=== PATIENT | female | born 1960 | race African-American/Black ===

== ENCOUNTER 2024-10-14 20:22 | Inpatient (IN) | payer MEDICARE, OTHER ==
[~2024-10-14] VITALS: Ht 160 cm; Wt 81.6 kg
[2024-10-14 21:30] LABS: APPEARANCE,URINE CLEAR (CLEAR); BLOOD, URINE NEGATIVE Ery/uL (NEGATIVE); LEUKOCYTE ESTERASE ,URINE NEGATIVE (NEGATIVE); NITRITE, URINE NEGATIVE (NEGATIVE); UGLUCOSE NEGATIVE (NEGATIVE)
[2024-10-14 21:36] LABS: PLATELET COUNT (AUTO) 201 K/uL (150-450); RED BLOOD CELL COUNT(AUTO) 4.66 MIL/uL (4.0-5.2); RED CELL DISTRIBUTION WIDTH 15.1 % (11.5-15.0); WHITE BLOOD COUNT (AUTO) 5.6 K/uL (4.3-11.0)
[2024-10-14 21:38] LABS: AMPHETAMINE, URINE NEGATIVE (NEGATIVE); BARBITURATE, URINE NEGATIVE (NEGATIVE); BENZODIAZEPINE, URINE NEGATIVE (NEGATIVE); CANNABINOID, URINE NEGATIVE (NEGATIVE); COCCAINE, URINE NEGATIVE (NEGATIVE); OPIATE, URINE NEGATIVE (NEGATIVE)
[2024-10-14 21:43] LABS: CALCIUM, SERUM 9.6 mg/dL (8.5-10.1); CREATININE 1.3 mg/dL (0.6-1.3); SODIUM SERUM 141 mmol/L (136-145); UREA NITROGEN, BLOOD 23 mg/dL (7-18)
[2024-10-14 21:48] LABS: ALCOHOL, BLOOD < 3 mg/dL (0-10); ASPARTATE AMINOTRANSFERASE 28 U/L (15-37); TOTAL PROTEIN, SERUM 7.9 g/dL (6.4-8.2)
[2024-10-14] MEDS ORDERED: ATOR20TA PO (22:34)
[2024-10-14] MEDS ORDERED: MECL-159 PO (22:34)
[2024-10-14] MEDS ORDERED: AMLO-212 PO (22:34)
[2024-10-14] MEDS ORDERED: NICO-627 TD (22:34)
[2024-10-14] MEDS ORDERED: HYDR25TA4 PO (22:34)
[2024-10-14] MEDS ORDERED: METF-440 PO (22:34)
[2024-10-14] MEDS ORDERED: CLON-418 PO (22:34)
[2024-10-14] MEDS ORDERED: ARIP1SOL PO (22:34)
[2024-10-14] MEDS ORDERED: QUET100T PO (22:36)
[2024-10-14] MEDS ORDERED: PANT40TA49 PO (22:36)
[2024-10-14] MEDS ORDERED: ZOLPIDEM TARTRATE 5 MG TABLET PO PRN ×2 (23:30)
[2024-10-14] MEDS ORDERED: LORAZEPAM 0.5 MG TABLET PO PRN (23:30)
[2024-10-14] MEDS ORDERED: LORAZEPAM 1 MG TABLET PO PRN (23:30)
[2024-10-14] MEDS ORDERED: MAG HYDROX/AL HYDROX/SIMETH 30 ML UDC PO PRN (23:30)
[2024-10-14] MEDS ORDERED: MAGNESIUM HYDROXIDE 30 ML UDC PO PRN (23:30)
[2024-10-14] MEDS: BLOOD SUGAR DIAGNOSTIC 1 EACH STRIP IN ONE (23:30)
[2024-10-14] MEDS ORDERED: ACETAMINOPHEN 325 MG TABLET PO PRN (23:30)
[2024-10-15 00:21] VITALS: BP 163/104; TEMP 98.8; O2SAT 100
[2024-10-15 03:44] VITALS: BP 153/75; TEMP 98.8; O2SAT 100
[2024-10-15 08:00] VITALS: BP_SYST 119; BP_SYST 154; BP_DIAS 73; BP_DIAS 75; TEMP 97.8; TEMP 98.1; O2SAT 98
[2024-10-15] MEDS: ARIPIPRAZOLE 5 MG TABLET PO SCH (11:20)
[2024-10-15 11:21] LABS: ASPARTATE AMINOTRANSFERASE 31.0 U/L (15-37); CALCIUM, SERUM 9.1 mg/dL (8.5-10.1); CREATININE 1.2 mg/dL (0.6-1.3); SODIUM SERUM 140.0 mmol/L (136-145); TOTAL PROTEIN, SERUM 7.0 g/dL (6.4-8.2); UREA NITROGEN, BLOOD 18.0 mg/dL (7-18)
[2024-10-15 11:23] LABS: LDL 120 mg/dL (0-99)
[2024-10-15 16:00] VITALS: BP 152/79; TEMP 98.1; O2SAT 100
[2024-10-15 19:50] VITALS: BP 148/77; TEMP 98.8; O2SAT 99
[2024-10-16 08:00] VITALS: BP 160/81; TEMP 98.6; O2SAT 96
[2024-10-16] MEDS ORDERED: PANTOPRAZOLE 40 MG TABLET.DR PO SCH (11:00)
[2024-10-16] MEDS ORDERED: AMLODIPINE BESYLATE 5 MG TABLET PO SCH (11:00)
[2024-10-16] MEDS ORDERED: METFORMIN 500 MG TABLET PO SCH (11:00)
[2024-10-16] MEDS ORDERED: NICOTINE PATCH (14MG) 14 MG PATCH.TD24 TD SCH (11:00)
[2024-10-16] MEDS ORDERED: HYDROCHLOROTHIAZIDE 25 MG TABLET PO SCH (11:00)
[2024-10-16] MEDS ORDERED: MECLIZINE HCL 25 MG TABLET PO SCH (11:00)
[2024-10-16] MEDS ORDERED: ATORVASTATIN 10 MG TABLET PO SCH (22:00)
== END 2024-10-16 10:55 | disposition left against medical advice (07) | DRG 885 ==
LOC: ER 20:24 → GPS 22:34
PROVIDERS: ADMIT Psychiatry & Neurology Psychiatry; ATTEND Nurse Practitioner Acute Care
DX: F20.0 Paranoid schizophrenia (principal); E11.65 Type 2 diabetes mellitus with hyperglycemia; D68.69 Other thrombophilia; I10 Essential (primary) hypertension; E66.9 Obesity, unspecified; Z86.73 Personal history of transient ischemic attack (TIA), and cerebral infarction without residual deficits; Z91.199 Patient's noncompliance with other medical treatment and regimen due to unspecified reason; Z20.822 Contact with and (suspected) exposure to COVID-19; Z73.6 Limitation of activities due to disability; F25.0 Schizoaffective disorder, bipolar type; Z68.31 Body mass index [BMI] 31.0-31.9, adult; E78.00 Pure hypercholesterolemia, unspecified; Z79.84 Long term (current) use of oral hypoglycemic drugs
CPT/HCPCS: 36415; 80048-TC; 80053-TC; 80061-TC; 80076-TC; 84484-TC; 85025-TC; 87081-TC; G0480